=== PATIENT | male | born 1960 | race Caucasian/White ===

== ENCOUNTER 2016-11-06 13:33 | Observation (INO) | payer OTHER, MEDICAID ==
[~2016-11-06] VITALS: Ht 175.3 cm; Wt 120.0 kg
[~2016-11-06 13:33] MED LIST: HYDR-3535 PO
[2016-11-06 13:35] VITALS: BP 151/86; PULSE 75; RESP 22; TEMP 98.2; O2SAT 96
[2016-11-06 13:51] VITALS: O2SAT 97
--- NOTE | 2016-11-06 13:52 | PD ---
HPI Chief Complaint: Chest Pain Time Seen by Provider: 13:43 Travel History International Travel<30 days: No Contact w/Intl Traveler<30days: No Traveled to known affect area: No History of Present Illness HPI 56-year-old male with history of chronic back pain with several back surgeries, not on pain medications, here for evaluation of chest pain. Patient reports that the pain started at around 4:00 AM today and has been intermittent throughout the day today. He describes it as a heaviness/driving sensation in his left chest which comes and goes, no modifying factors, is moderate. No known history of cardiac disease. He smokes about a half a pack of cigarettes daily. Denies alcohol or illicit drug use. No history of DVT or PE. No dyspnea. No paresthesias or motor deficits. Currently he is complaining of pain and states it is an 8 out of 10. PFSH Past Medical History Arthritis: No Asthma: No Autoimmune Disease: No Anxiety: No Depression: Yes Heart Rhythm Problems: No Cancer: No Cardiac Catheterization: Yes Cardiovascular Problems: Yes High Cholesterol: Yes Chemotherapy: No Chest Pain: No Congestive Heart Failure: No COPD: No Cerebrovascular Accident: No Diabetes: Yes (BORDERLINE;NO MEDICATIONS) Patient Takes Glucophage: No Diminished Hearing: No Endocrine: Yes Gastrointestinal Disorders: No GERD: Yes Genitourinary: Yes Headaches: Yes Hepatitis: No Hiatal Hernia: Yes Hypertension: Yes Immune Disorder: No Kidney Stones: No Medical other: Yes (reflux stomach ulcers arthritis,back problems hx of mrsa to the scrota) Musculoskeletal: Yes (CHRONIC BACK PAIN>SEES PAIN MANAGMENT) Neurologic: Yes Psychiatric: Yes Reproductive: Yes Respiratory: Yes Immunizations Current: Yes Migraines: Yes Radiation Therapy: No Renal Failure: No Schizophrenia: Yes Seizures: No Sickle Cell Disease: No Sleep Apnea: Yes Thyroid Disease: No Ulcer: Yes PNEUMOCCOCAL Vaccine (Year): 2 Past Surgical History Abdominal Surgery: Yes (HERNIA X 2) AICD: No Arteriovenous Shunt: No Cardiac Surgery: No Ear Surgery: Yes (RIGHT EAR) Endocrine Surgery: No Eye Surgery: No Genitourinary Surgery: Yes (vasectomy repair of the lacerated scrotal area, LT ORCHIECTOMY) Gynecologic Surgery: No Insulin Pump: No Joint Replacement: No Neurologic Surgery: No Oral Surgery: No Thoracic Surgery: Yes (RIGHT COLLAR BONE) Other Surgery: Yes (RECTOCELLE) Social History Alcohol Use: No (DENIES) Tobacco Use: Yes (2 PPD) Substance Use: No Allergies-Medications (Allergen,Severity, Reaction): Coded Allergies: Aspirin (Verified Allergy, Intermediate, Stomach pain & bloating, 11/06/16) Nonsteroidal Anti-Inflammatory Agts (Verified Allergy, Mild, reflux, pain & bloating, 11/06/16) Reported Meds & Prescriptions Reported Meds & Active Scripts Active No Active Prescriptions or Reported Medications Review of Systems Except as stated in HPI: all other systems reviewed are Neg Physical Exam Narrative GENERAL: Well-developed, well-nourished, disheveled, comfortable, no acute distress. SKIN: Warm and dry. HEAD: Atraumatic. Normocephalic. EYES: Pupils equal and round. No scleral icterus. No injection or drainage. ENT: Mucous membranes pink and moist. NECK: Trachea midline. No JVD. CARDIOVASCULAR: Regular rate and rhythm. Distal pulses brisk and equal bilaterally. RESPIRATORY: No accessory muscle use. Clear to auscultation. Breath sounds equal bilaterally. GASTROINTESTINAL: Abdomen soft, non-tender, nondistended. MUSCULOSKELETAL: No obvious deformities. No clubbing. No cyanosis. No edema. NEUROLOGICAL: Awake and alert. No obvious cranial nerve deficits. Motor grossly within normal limits. Normal speech. PSYCHIATRIC: Appropriate mood and affect; insight and judgment normal. Data Data Last Documented VS Vital Signs Date Time Temp Pulse Resp B/P Pulse Ox O2 Delivery O2 Flow Rate FiO2 11/06/16 13:54 140/71 145/87 11/06/16 13:51 97 Room Air 11/06/16 13:35 98.2 75 22 Orders Basic Metabolic Panel (Bmp) (11/06/16 13:47) Ckmb (Isoenzyme) Profile (11/06/16 13:47) Complete Blood Count With Diff (11/06/16 13:47) Magnesium (Mg) (11/06/16 13:47) Prothrombin Time / Inr (Pt) (11/06/16 13:47) Act Partial Throm Time (Ptt) (11/06/16 13:47) Troponin I (11/06/16 13:47) Chest, Single Ap (11/06/16 13:47) Ecg Monitoring (11/06/16 13:47) Bilateral Bp Monitoring (11/06/16 13:47) Iv Access Insert/Monitor (11/06/16 13:47) Oximetry (11/06/16 13:47) Sodium Chloride 0.9% Flush (Ns Flush) (11/06/16 14:00) Nitroglycerin Sl (Nitrostat Sl) (11/06/16 14:00) CKMB (11/06/16 13:58) CKMB% (11/06/16 13:58) Labs Laboratory Tests Test 11/06/16 13:58 White Blood Count 8.2 TH/MM3 Red Blood Count 5.10 MIL/MM3 Hemoglobin 15.3 GM/DL Hematocrit 43.7 % Mean Corpuscular Volume 85.6 FL Mean Corpuscular Hemoglobin 30.0 PG Mean Corpuscular Hemoglobin 35.0 % Concent Red Cell Distribution Width 13.5 % Platelet Count 232 TH/MM3 Mean Platelet Volume 8.3 FL Neutrophils (%) (Auto) 57.7 % Lymphocytes (%) (Auto) 30.8 % Monocytes (%) (Auto) 9.2 % Eosinophils (%) (Auto) 1.5 % Basophils (%) (Auto) 0.8 % Neutrophils # (Auto) 4.7 TH/MM3 Lymphocytes # (Auto) 2.5 TH/MM3 Monocytes # (Auto) 0.7 TH/MM3 Eosinophils # (Auto) 0.1 TH/MM3 Basophils # (Auto) 0.1 TH/MM3 CBC Comment DIFF FINAL Differential Comment Prothrombin Time 10.5 SEC Prothromb Time International 1.0 RATIO Ratio Activated Partial 24.2 SEC Thromboplast Time Sodium Level 139 MEQ/L Potassium Level 4.0 MEQ/L Chloride Level 102 MEQ/L Carbon Dioxide Level 25.8 MEQ/L Anion Gap 11 MEQ/L Blood Urea Nitrogen 13 MG/DL Creatinine 0.96 MG/DL Estimat Glomerular Filtration 82 ML/MIN Rate Random Glucose 113 MG/DL Calcium Level 8.9 MG/DL Magnesium Level 2.1 MG/DL Total Creatine Kinase 231 U/L Creatine Kinase MB 4.1 NG/ML Troponin I LESS THAN 0.02 NG/ML MDM Medical Decision Making Medical Screen Exam Complete: Yes Emergency Medical Condition: Yes Medical Record Reviewed: Yes Interpretation(s) EKG: Sinus, rate 72, normal axis, normal intervals, nonspecific T-wave abnormalities, no ST segment abnormality Differential Diagnosis ACS, pneumothorax, pericarditis, PE, pneumonia, musculoskeletal chest wall pain. Narrative Course Vital signs show heart rate 75, blood pressure 151/86, pulse ox 97% on room air , oral temp of 98.2F. CBC is unremarkable. BMP is unremarkable. Chronic enzymes are negative. Chest x-ray shows no acute disease. Right clavicle surgically fixated. The patient was not given aspirin as he has an allergy that sounds like an anaphylaxis reaction. Patient was given sublingual nitroglycerin with some improvement in chest pain. He was made aware of all findings. He will be admitted to the chest pain center for further cardiac evaluation. He is amenable to this plan. Diagnosis Primary Impression: Chest pain Qualified Code: R07.9 - Chest pain, unspecified type Admitting Information Admitting Physician Requests: Observation Scripts No Active Prescriptions or Reported Meds Jayy Allen MD Nov 06, 2016 13:52
[2016-11-06 13:54] VITALS: BP_SYST 140; BP_SYST 145; BP_DIAS 71; BP_DIAS 87
[2016-11-06] MEDS: NITROGLYCERIN 0.4 MG SL 25 TABS/BTL SL SCH ×3 (13:56→14:10)
[2016-11-06] MEDS ORDERED: SODIUM CHLORIDE 0.9% FLUSH 5 ML FLUSH IVF PRN ×2 (14:00→16:00)
[2016-11-06 14:13] LABS: AUTOMATED NEUTROPHIL # 4.7 TH/MM3 (1.8-7.7); BASOPHIL # 0.1 TH/MM3 (0-0.2); BASOPHIL % 0.8 % (0.0-2.0); EOSINOPHIL # 0.1 TH/MM3 (0-0.4); EOSINOPHIL % 1.5 % (0.0-4.0); HEMATOCRIT 43.7 % (39.0-51.0); HEMO FLAGS DIFF FINAL; LYMPH % 30.8 % (9.0-44.0); LYMPHOCYTE # 2.5 TH/MM3 (1.0-4.8); MEAN CELL VOLUME 85.6 FL (80.0-100.0); MONO % 9.2 % (0.0-8.0); NEUT % 57.7 % (16.0-70.0); PLATELET COUNT 232 TH/MM3 (150-450); RED CELL DISTRIBUTION WIDTH 13.5 % (11.6-17.2); WHITE BLOOD COUNT 8.2 TH/MM3 (4.0-11.0)
--- NOTE | 2016-11-06 14:16 | RADRPT ---
EXAM DATE/TIME: 11/06/2016 14:05 [facility] COMPARISON: No previous studies available for comparison. INDICATIONS : Chest pain since 4am today, some numbness in left hand, short of breath MEDICAL HISTORY : Chronic obstructive pulmonary disease. SURGICAL HISTORY : clavicle, cervical fusion, hernia repair ENCOUNTER: Initial ACUITY: 1 day PAIN SCORE: 10/10 LOCATION: Bilateral chest FINDINGS: A single view of the chest demonstrates the lungs to be symmetrically aerated without evidence of mas s, infiltrate or effusion. The cardiomediastinal contours are unremarkable. Osseous structures are intact. Previous cervical fusion and right clavicular plate. CONCLUSION: Normal examination. Right clavicle is surgically fixated Kj Brand MD on November 06, 2016 at 14:14 Board Certified Radiologist. This report was verified electronically.
[2016-11-06 14:18] LABS: APTT (PATIENT) 24.2 SEC (24.3-30.1); PROTHROMBIN TIME - PATIENT 10.5 SEC (9.8-11.6)
[2016-11-06 14:33] LABS: ANION GAP 11 MEQ/L (5-15); BICARBONATE 25.8 MEQ/L (21.0-32.0); BLOOD UREA NITROGEN 13 MG/DL (7-18); CHLORIDE 102 MEQ/L (98-107); GLOMERULAR FILTRATION RATE 82 ML/MIN (>89); MAGNESIUM 2.1 MG/DL (1.5-2.5); SODIUM (NA) 139 MEQ/L (136-145)
[2016-11-06 14:36] LABS: CREATINE KINASE 231 U/L (39-308)
[2016-11-06 14:48] LABS: CKMB 4.1 NG/ML (0.5-3.6)
[2016-11-06] MEDS ORDERED: MORPHINE SULFATE 8 MG/ML INJ IV PUSH ONE (16:00)
[2016-11-06] MEDS ORDERED: RESP: ALBUTEROL 2.5 MG/IPRATROPIUM 0.5 MG NEB (PRN) INH (16:00)
[2016-11-06] MEDS ORDERED: ACETAMINOPHEN/HYDROcodone 325 MG/7.5 MG TAB PO PRN (16:00)
[2016-11-06] MEDS ORDERED: ONDANSETRON HCL 4 MG/2 ML VIAL IV PRN (16:00)
[2016-11-06] MEDS ORDERED: ACETAMINOPHEN 500 MG CPLT PO PRN (16:00)
[2016-11-06 17:01] LABS: CREATINE KINASE 201 U/L (39-308)
--- NOTE | 2016-11-06 17:07 | HHI.DCPOC ---
Discharge Care Plan Diagnosis: (1) Chest pain (2) Chronic back pain (3) Tobacco abuse Goals to Promote Your Health * To prevent worsening of your condition and complications * To maintain your health at the optimal level Directions to Meet Your Goals Take your medications as prescribed Follow your dietary instruction Follow activity as directed Keep your appointments as scheduled Take your immunizations and boosters as scheduled If your symptoms worsen call your PCP, if no PCP go to Urgent Care Center or Emergency Room Smoking is Dangerous to Your Health. Avoid second hand smoke Call the 24-hour hour crisis hotline for domestic abuse at Lewis Balbuena Nov 06, 2016 17:07
[2016-11-06 17:08] VITALS: BP 136/59
[2016-11-06 17:14] LABS: CKMB 2.8 NG/ML (0.5-3.6)
[2016-11-06] MEDS ORDERED: SODIUM CHLORIDE 0.9% FLUSH 5 ML FLUSH IVF SCH (21:00)
--- NOTE | 2016-11-07 08:41 | MH ---
cc: LOLIS DANG MD DATE OF ADMISSION: 11/06/2016 CHIEF COMPLAINT Chest pain HISTORY OF PRESENT ILLNESS This is a 56-year-old male that presents to the last size back pain and chest pain. His primary complaint was chest discomfort. He states that he woke up around 3 o'clock this morning secondary to back pain. While he is awake he developed a left center squeezing discomfort chest. Last about 5 seconds well as what was at 10. It did not affect his breathing make and nauseous or back and diaphoretic. He states it has recurred Maddie 20 times since then. He has time, lasting no more than seconds. Also complaining of chronic upper and lower back pain. He states he has not taken his pain meds at the month ago. He states he really was not working and 154 out. He is not following a back surgeon and started to further workup in his office requesting physical therapy. Next the patient has been evaluated at this facility for chest pain. He had abnormal stress test 04/15 followed by heart catheterization by Dr. Perry revealed widely patent coronary arteries. PAST MEDICAL HISTORY Chronic back pain and tobacco abuse. Denies hypertension, hyperlipidemia, diabetes and CAD. FAMILY HISTORY Denies family history of CAD. SOCIAL HISTORY He smoked about half packs daily for 30 years. He has occasional alcohol. Denies illicit drugs. . PAST SURGICAL HISTORY Vasectomy and left orchiectomy repair fracture right, right clavicle had hernia repair x2, heart catheterization revealing widely patent coronary arteries and 1010. ALLERGIES ASPIRIN, causing angioedema. CURRENT MEDICATIONS 93 mL. Taking pain medications by the pain meds Years ago mEq month ago. REVIEW OF SYSTEMS General: Denies fevers or chills. Denies recent illnesses. HEAD, EYES, EARS, NOSE, AND THROAT: Denies headache or sore throat difficulty swallowing. CARDIOVASCULAR SYSTEM: Describes the discomfort as mentioned above. Denies diaphoresis. Denies sensation of beating rapidly or irregular. No syncope. RESPIRATORY: Denies shortness of breath or inspirational chest discomfort. Denies coughing, wheezing or hemoptysis. GASTROINTESTINAL: Denies nausea, vomiting, diarrhea, blood in stool. MUSCULOSKELETAL: He complains of chronic back pain. Denies calf pain or swelling. NEUROVASCULAR: Denies headache or dizziness. ENDOCRINE: Denies polyuria, Polydipsia. HEMATOLOGIC: Denies easy bruising. SKIN: Denies rash or itching. PHYSICAL EXAMINATION VITAL SIGNS: In emergency room initially included a blood pressure of 151/86 or 75, respiration 20, pulse oximetry 96% room air. He is afebrile. IN GENERAL: The patient seen in the examination room in no apparent stress. He is pleasant. He speaks in clear and complete sentences. He is obese at 120 kg. His is at Bedside. HEAD, EYES, EARS, NOSE, AND THROAT: Head is atraumatic, normocephalic. NECK: Supple without lymphadenopathy. Trachea is midline. No JVD or carotid bruits. CARDIOVASCULAR SYSTEM: Regular rate and rhythm without murmur, gallop or rub. RESPIRATORY: Lungs are clear to auscultation bilaterally. No wheezing, rales or rhonchi. No use of accessory muscles. There is easily reproducible chest wall discomfort. He actually had another episode discomfort in his chest while there. I have palpated that area which made the discomfort even more intense. No use of accessory muscles. GASTROINTESTINAL: Abdomen is nontender, nondistended. Bowel sounds are normal. No guarding or rebound. No obvious pulsatile mass or bruit. No CVA tenderness. Strong femoral pulses bilaterally. MUSCULOSKELETAL: Patient moving upper lower extremity freely. No joint tenderness or edema. No calf tenderness or edema, no Homans' sign. Strong pulses in the upper and lower extremities. NEUROVASCULAR: The patient is alert, oriented. Cranial II XII grossly intact. No focal deficit and speech is clear. SKIN: No rashes. Turgor is normal. LABORATORY DATA CBC is unremarkable. Coagulation studies unremarkable. The basic metabolic panel essentially unremarkable. Glucose mild 113, GFR is mildly increased 82. First set cardiac enzymes normal. Single view chest x-ray read by radiologist as normal examination of right clavicle surgically fixated. EKG's initial electrocardiogram has sinus rhythm with nonspecific inferior T-wave changes. ASSESSMENT/PLAN: 1. Chest pain: His discomfort is atypical. He had a normal heart catheterization 2009. He has been seen by Dr. Dang and found this to be noncardiac. He will be given IV analgesia for his discomfort and if the second troponin were to be normal he will be discharged home with instructions to be followed by local physician as well as his back surgeon who is following him. 2. Chronic back pain: Continue follow-up with his specialist. 3. Tobacco abuse: The patient has been counseled for smoking cessation. 4. The patient stable at time. He is agreeable this plan. Dictated by ZOHRA Connell Lionel العلي/mia /4:12 PM /8:36 AM
--- NOTE | 2016-11-08 15:53 | EKG ---
Date Performed: 11/06/2016 Time Performed: 16:16:23 PTAGE: 56 years EKG: Sinus rhythm LOW QRS VOLTAGE IN PRECORDIAL LEADS NONSPECIFIC T-WAVE ABNORMALITY BORDERLINE ECG INTERPRETATION BAS ED ON A DEFAULT AGE OF 40 YEARS PREVIOUS TRACING : 11/06/2016 13.37 Since previous tracing, no significant change noted DOCTOR: Obinna Connell Interpretating Date/Time 11/08/2016 15:50:52
--- NOTE | 2016-11-08 15:54 | EKG ---
Date Performed: 11/06/2016 Time Performed: 13:37:46 PTAGE: 56 years EKG: Sinus rhythm NONSPECIFIC T-WAVE ABNORMALITY BORDERLINE ECG PREVIOUS TRACING : 10/09/2011 11.45 Since previous tracing, no significant change noted DOCTOR: Obinna Connell Interpretating Date/Time 11/08/2016 15:51:03
== END 2016-11-06 17:23 | disposition home or self-care (01) ==
LOC: NEPC 13:33 → NEDA 15:02
PROVIDERS: ADMIT Internal Medicine Interventional Cardiology; ATTEND Internal Medicine Interventional Cardiology
DX: R07.89 Other chest pain (principal); I10 Essential (primary) hypertension; Z87.11 Personal history of peptic ulcer disease; M54.5 Low back pain; G89.29 Other chronic pain; E11.9 Type 2 diabetes mellitus without complications; K21.9 Gastro-esophageal reflux disease without esophagitis; F20.9 Schizophrenia, unspecified; G47.30 Sleep apnea, unspecified; E78.00 Pure hypercholesterolemia, unspecified; F17.210 Nicotine dependence, cigarettes, uncomplicated; Z86.14 Personal history of Methicillin resistant Staphylococcus aureus infection; R94.31 Abnormal electrocardiogram [ECG] [EKG]
CPT/HCPCS: 71010; 80048; 82550; 82552; 83735; 84484; 85025; 85610; 85730; 93005; 99285; G0378; J2270

== ENCOUNTER 2017-11-22 07:51 | Observation (INO) | payer OTHER, MEDICAID ==
[2017-11-22] VITALS (7 sets, daily range): BP systolic 134–187; BP diastolic 71–91; PULSE 62–74; RESP 16–20; TEMP 97.7–97.9; O2SAT 96–99
[2017-11-22] MEDS ORDERED: SODIUM CHLOR 0.9% 1000 ML INJ 1,000 ML IV SCH (08:07)
--- NOTE | 2017-11-22 08:14 | PD ---
HPI Chief Complaint: Flank/Kidney Pain Time Seen by Provider: 08:06 Travel History International Travel<30 days: No Contact w/Intl Traveler<30days: No Traveled to known affect area: No History of Present Illness HPI 57-year-old male brought in by ambulance from home for evaluation of severe right flank pain radiating to his right lower abdomen that started about an hour prior to arrival while having a bowel movement. Pain is sharp, severe, associated with nausea. Patient noted some blood in his urine a few days ago. History of inguinal hernia repair. PFSH Past Medical History Arthritis: No Asthma: No Autoimmune Disease: No Anxiety: No Depression: Yes Heart Rhythm Problems: No Cancer: No Cardiac Catheterization: Yes Cardiovascular Problems: Yes High Cholesterol: Yes Chemotherapy: No Chest Pain: No Congestive Heart Failure: No COPD: No Cerebrovascular Accident: No Diabetes: Yes (BORDERLINE;NO MEDICATIONS) Diminished Hearing: No Endocrine: Yes Gastrointestinal Disorders: No GERD: Yes Genitourinary: Yes Headaches: Yes Hepatitis: No Hiatal Hernia: Yes Hypertension: Yes Immune Disorder: No Kidney Stones: No Musculoskeletal: Yes (CHRONIC BACK PAIN>SEES PAIN MANAGMENT) Neurologic: Yes Psychiatric: Yes Reproductive: Yes Respiratory: Yes Immunizations Current: Yes Migraines: Yes Radiation Therapy: No Renal Failure: No Schizophrenia: Yes Seizures: No Sickle Cell Disease: No Sleep Apnea: Yes Thyroid Disease: No Ulcer: Yes PNEUMOCCOCAL Vaccine (Year): 2 Past Surgical History Abdominal Surgery: Yes (HERNIA X 2) AICD: No Arteriovenous Shunt: No Cardiac Surgery: No Ear Surgery: Yes (RIGHT EAR) Endocrine Surgery: No Eye Surgery: No Genitourinary Surgery: Yes (vasectomy repair of the lacerated scrotal area, LT ORCHIECTOMY) Gynecologic Surgery: No Insulin Pump: No Joint Replacement: No Neurologic Surgery: No Oral Surgery: No Thoracic Surgery: Yes (RIGHT COLLAR BONE) Other Surgery: Yes (RECTOCELLE) Social History Alcohol Use: No (DENIES) Tobacco Use: Yes (1/2 PPD) Substance Use: No Allergies-Medications (Allergen,Severity, Reaction): Coded Allergies: aspirin (Unverified Allergy, Intermediate, Stomach pain & bloating, ) diclofenac (Unverified Allergy, Mild, reflux, pain & bloating, 11/22/17) etodolac (Unverified Allergy, Mild, reflux, pain & bloating, 11/22/17) flurbiprofen (Unverified Allergy, Mild, reflux, pain & bloating, 11/22/17) ibuprofen (Unverified Allergy, Mild, reflux, pain & bloating, 11/22/17) indomethacin (Unverified Allergy, Mild, reflux, pain & bloating, 11/22/17) ketoprofen (Unverified Allergy, Mild, reflux, pain & bloating, 11/22/17) ketorolac (Unverified Allergy, Mild, reflux, pain & bloating, 11/22/17) naproxen (Unverified Allergy, Mild, reflux, pain & bloating, 11/22/17) oxaprozin (Unverified Allergy, Mild, reflux, pain & bloating, 11/22/17) Reported Meds & Prescriptions Reported Meds & Active Scripts Active No Active Prescriptions or Reported Medications Review of Systems Except as stated in HPI: all other systems reviewed are Neg Physical Exam Narrative GENERAL: Well-developed, well-nourished, overweight, moderate distress secondary to pain. SKIN: Focused skin assessment warm/dry. No rash. HEAD: Atraumatic. Normocephalic. EYES: Pupils equal and round. No scleral icterus. No injection or drainage. ENT: No nasal bleeding or discharge. Mucous membranes pink and moist. NECK: Trachea midline. No JVD. CARDIOVASCULAR: Regular rate and rhythm. RESPIRATORY: No accessory muscle use. Clear to auscultation. Breath sounds equal bilaterally. GASTROINTESTINAL: Abdomen soft, non-tender, nondistended. MUSCULOSKELETAL: No obvious deformities. No clubbing. No cyanosis. No edema. Mild right CVA tenderness. No left CVA tenderness. NEUROLOGICAL: Awake and alert. No obvious cranial nerve deficits. Motor grossly within normal limits. Normal speech. PSYCHIATRIC: Appropriate mood and affect; insight and judgment normal. Data Data Last Documented VS Vital Signs Date Time Temp Pulse Resp B/P (MAP) Pulse Ox O2 Delivery O2 Flow Rate FiO2 11/22/17 11:35 74 16 153/80 (104) 99 Room Air Orders Orders Complete Blood Count With Diff (11/22/17 08:07) Comprehensive Metabolic Panel (11/22/17 08:07) Prothrombin Time / Inr (Pt) (11/22/17 08:07) Act Partial Throm Time (Ptt) (11/22/17 08:07) Urinalysis - C+S If Indicated (11/22/17 08:07) Ct Abd/Pel W/O Iv Contrast (11/22/17 08:07) Iv Access Insert/Monitor (11/22/17 08:07) Ecg Monitoring (11/22/17 08:07) Oximetry (11/22/17 08:07) Sodium Chlor 0.9% 1000 Ml Inj (Ns 1000 M (11/22/17 08:07) Sodium Chloride 0.9% Flush (Ns Flush) (11/22/17 08:15) Hydromorphone Pf Inj (Dilaudid Pf Inj) (11/22/17 08:15) Ondansetron Inj (Zofran Inj) (11/22/17 08:15) Hydromorphone Pf Inj (Dilaudid Pf Inj) (11/22/17 09:00) Tamsulosin (Flomax) (11/22/17 10:00) Ketorolac Inj (Toradol Inj) (11/22/17 10:00) Admit Order (Ed Use Only) (11/22/17 11:42) Labs Laboratory Tests Test 11/22/17 08:15 White Blood Count 7.6 TH/MM3 Red Blood Count 5.32 MIL/MM3 Hemoglobin 15.7 GM/DL Hematocrit 45.8 % Mean Corpuscular Volume 86.1 FL Mean Corpuscular Hemoglobin 29.5 PG Mean Corpuscular Hemoglobin Concent 34.2 % Red Cell Distribution Width 13.5 % Platelet Count 266 TH/MM3 Mean Platelet Volume 7.9 FL Neutrophils (%) (Auto) 54.2 % Lymphocytes (%) (Auto) 33.8 % Monocytes (%) (Auto) 9.9 % Eosinophils (%) (Auto) 1.4 % Basophils (%) (Auto) 0.7 % Neutrophils # (Auto) 4.1 TH/MM3 Lymphocytes # (Auto) 2.6 TH/MM3 Monocytes # (Auto) 0.7 TH/MM3 Eosinophils # (Auto) 0.1 TH/MM3 Basophils # (Auto) 0.1 TH/MM3 CBC Comment DIFF FINAL Differential Comment Prothrombin Time 10.2 SEC Prothromb Time International Ratio 1.0 RATIO Activated Partial Thromboplast Time 21.3 SEC Urine Color YELLOW Urine Turbidity CLEAR Urine pH 5.0 Urine Specific Russell 1.021 Urine Protein NEG mg/dL Urine Glucose (UA) NEG mg/dL Urine Ketones NEG mg/dL Urine Occult Blood LARGE Urine Nitrite NEG Urine Bilirubin NEG Urine Urobilinogen LESS THAN 2.0 MG/DL Urine Leukocyte Esterase NEG Urine RBC 2 /hpf Urine WBC 1 /hpf Urine Mucus FEW /lpf Microscopic Urinalysis Comment CULT NOT INDICATED Blood Urea Nitrogen 14 MG/DL Creatinine 0.94 MG/DL Random Glucose 150 MG/DL Total Protein 7.5 GM/DL Albumin 3.9 GM/DL Calcium Level 9.2 MG/DL Alkaline Phosphatase 72 U/L Aspartate Amino Transf (AST/SGOT) 42 U/L Alanine Aminotransferase (ALT/SGPT) 56 U/L Total Bilirubin 0.2 MG/DL Sodium Level 139 MEQ/L Potassium Level 4.2 MEQ/L Chloride Level 107 MEQ/L Carbon Dioxide Level 24.0 MEQ/L Anion Gap 8 MEQ/L Estimat Glomerular Filtration Rate 83 ML/MIN [facility] Medical Decision Making Medical Screen Exam Complete: Yes Emergency Medical Condition: Yes Differential Diagnosis Nephrolithiasis, ureterolithiasis, UTI, pyelonephritis, colitis, diverticulitis , perforated viscus, AAA, dissection Narrative Course Vital signs reviewed. CBC is unremarkable. CMP is unremarkable. UA: Large occult blood, not suggestive of UTI. CT abdomen pelvis: CONCLUSION: Tiny, 1 mm stone distal right ureter without hydronephrosis or perinephric stranding. Tiny nonobstructing stone left kidney. Patient was given 2 doses of 1 mg of IV Dilaudid without improvement in pain. His medication allergy list states that he is allergic to Toradol. When asked about this, the patient tells me he does not know why it says this. He was given 30 mg of IV Toradol and his pain improved. On reassessment 30 minutes later he states his pain is back and is getting worse. He was given a dose of Flomax. Because of continued pain, he will be admitted for further treatment and evaluation. Diagnosis Primary Impression: Ureterolithiasis Additional Impression: Intractable pain Admitting Information Admitting Physician Requests: Observation Scripts No Active Prescriptions or Reported Meds Jayy Allen MD Nov 22, 2017 08:14
[2017-11-22] MEDS ORDERED: HYDROmorphone HCL PF 2 MG/ML VIAL IV PUSH ONE ×2 (08:15→09:00)
[2017-11-22] MEDS ORDERED: SODIUM CHLORIDE 0.9% FLUSH 10 ML FLUSH IV FLUSH PRN ×2 (08:15→13:15)
[2017-11-22] MEDS ORDERED: ONDANSETRON HCL 4 MG/2 ML VIAL IV PUSH ONE (08:15)
[2017-11-22 08:48] LABS: AUTOMATED NEUTROPHIL # 4.1 TH/MM3 (1.8-7.7); BASOPHIL # 0.1 TH/MM3 (0-0.2); BASOPHIL % 0.7 % (0.0-2.0); EOSINOPHIL # 0.1 TH/MM3 (0-0.4); EOSINOPHIL % 1.4 % (0.0-4.0); HEMATOCRIT 45.8 % (39.0-51.0); HEMOGLOBIN 15.7 GM/DL (13.0-17.0); LYMPH % 33.8 % (9.0-44.0); LYMPHOCYTE # 2.6 TH/MM3 (1.0-4.8); MEAN CELL VOLUME 86.1 FL (80.0-100.0); MEAN CORPUSCULAR HEMOGLOBIN 29.5 PG (27.0-34.0); MEAN CORPUSCULAR HGB CONC 34.2 % (32.0-36.0); MEAN PLATELET VOLUME 7.9 FL (7.0-11.0); MONO % 9.9 % (0.0-8.0); MONOCYTE # 0.7 TH/MM3 (0-0.9); NEUT % 54.2 % (16.0-70.0); PLATELET COUNT 266 TH/MM3 (150-450); RED BLOOD COUNT 5.32 MIL/MM3 (4.50-5.90); RED CELL DISTRIBUTION WIDTH 13.5 % (11.6-17.2); WHITE BLOOD COUNT 7.6 TH/MM3 (4.0-11.0)
[2017-11-22 08:58] LABS: BILIRUBIN, URINE NEG (NEG); BLOOD, URINE LARGE (NEG); GLUCOSE,URINE NEG (NEG); KETONE, URINE NEG (NEG); MUCUS URINE FEW /lpf (OCC); NITRITE,URINE NEG (NEG); PROTHROMBIN TIME - PATIENT 10.2 SEC (9.8-11.6); URINE COLOR YELLOW (YELLW/STRAW); URINE LEUKOCYTE ESTERASE NEG (NEG)
[2017-11-22 09:14] LABS: ALBUMIN 3.9 GM/DL (3.4-5.0); AST (GOT) 42 U/L (15-37); BLOOD UREA NITROGEN 14 MG/DL (7-18); CALCIUM 9.2 MG/DL (8.5-10.1); CHLORIDE 107 MEQ/L (98-107); CREATININE 0.94 MG/DL (0.60-1.30); GLOMERULAR FILTRATION RATE 83 ML/MIN (>89); GLUCOSE,RANDOM 150 MG/DL (74-106); SODIUM (NA) 139 MEQ/L (136-145)
[2017-11-22 09:15] LABS: ALT (GPT) 56 U/L (12-78)
[2017-11-22 09:18] LABS: ALKALINE PHOSPHATASE 72 U/L (45-117); TOTAL BILIRUBIN ADULT 0.2 MG/DL (0.2-1.0); TOTAL PROTEIN 7.5 GM/DL (6.4-8.2)
--- NOTE | 2017-11-22 09:40 | RADRPT ---
EXAM DATE/TIME: 11/22/2017 09:04 [facility] COMPARISON: CT ABDOMEN & PELVIS W/O CONTRAST, January 15, 2016, 16:30. INDICATIONS : Right sided pain for a few hours. ORAL CONTRAST: No oral contrast ingested. RADIATION DOSE: 12.77 CTDIvol (mGy) MEDICAL HISTORY : Cardiovascular disease. Hypertension. Hernia, hiatal. SURGICAL HISTORY : Scrotal surgery ENCOUNTER: Initial ACUITY: 1 day PAIN SCALE: 9/10 LOCATION: Right ribs TECHNIQUE: Volumetric scanning of the abdomen and pelvis was performed. Using automated exposure control and ad justment of the mA and/or kV according to patient size, radiation dose was kept as low as reasonably achievable to obtain optimal diagnostic quality images. DICOM format image data is available electro nically for review and comparison. FINDINGS: LOWER LUNGS: The visualized lower lungs are clear. LIVER: Homogeneous density without lesion. There is no dilation of the biliary tree. No calcified gallston es. SPLEEN: Normal size without lesion. PANCREAS: Within normal limits. KIDNEYS: Tiny stone distal right ureter just above the UVJ.. Tiny nonobstructing stone left kidney. No perin ephric stranding. ADRENAL GLANDS: Within normal limits. VASCULAR: Minimal vascular calcifications. BOWEL/MESENTERY: The stomach, small bowel, and colon demonstrate no acute abnormality. There is no free intraperitone al air or fluid. ABDOMINAL WALL: Within normal limits. RETROPERITONEUM: There is no lymphadenopathy. BLADDER: No wall thickening or mass. REPRODUCTIVE: Within normal limits. INGUINAL: There is no lymphadenopathy or hernia. MUSCULOSKELETAL: Fixation L4-5. CONCLUSION: Tiny, 1 mm stone distal right ureter without hydronephrosis or perinephric stranding. Tiny nonobstructing stone left kidney. Robin Humphrey MD FACR on November 22, 2017 at 9:35 Board Certified Radiologist. This report was verified electronically.
[2017-11-22] MEDS ORDERED: TAMSULOSIN HCL 0.4 MG CAP PO ONE (10:00)
[2017-11-22] MEDS ORDERED: KETOROLAC TROMETHAMINE 30 MG/ML (IVP) VIAL IV PUSH ONE (10:00)
[2017-11-22] MEDS ORDERED: LACTULOSE SYRUP 20 GM/30 ML CUP PO PRN (13:15)
[2017-11-22] MEDS ORDERED: ONDANSETRON HCL 4 MG/2 ML VIAL IVP PRN (13:15)
[2017-11-22] MEDS ORDERED: BISACODYL 10 MG SUPP RECTAL PRN (13:15)
[2017-11-22] MEDS ORDERED: SENNOSIDES 8.6 MG TAB PO PRN (13:15)
[2017-11-22] MEDS ORDERED: MAGNESIUM HYDROXIDE SUSP 30 ML CUP PO PRN (13:15)
[2017-11-22] MEDS ORDERED: NALOXONE HCL 0.4 MG/ML AMP IV PUSH PRN (13:15)
--- NOTE | 2017-11-22 13:42 | HHI.HP ---
[facility] Service [facility] Primary Care Physician Unknown Admission Diagnosis ureterolithiasis, intractable flank pain Diagnoses: (1) Ureterolithiasis Travel History International Travel<30 Days: No Contact w/Intl Traveler <30 Da: No Traveled to Known Affected Are: No History of Present Illness 57-year-old male with a history of chronic pain presents to the ER today following onset of right flank pain that is colicky in nature and associated with hematuria beginning this morning at approximately 8 AM. Onset was sudden and while urinating. She denies any significant nausea or vomiting, or chest pain. He states that he feels dehydrated and cannot produce much urine at this time. Other significant history includes a history of low back pain and previous abdominal surgeries for which she has visited pain management for p.o. narcotics. His pain has been difficult to control in the ER despite the stone being only [address] Review of Systems Constitutional: DENIES: Fever, Weight gain, Weight loss, Chills Eyes: DENIES: Blurred vision, Diplopia, Eye pain, Vision loss Ears, nose, mouth, throat: DENIES: Vertigo, Throat pain, Hoarseness Respiratory: DENIES: Cough, Wheezing, Hemoptysis, Sputum production Cardiovascular: DENIES: Palpitations, Syncope, Dyspnea on Exertion, Lower Extremity Edema Gastrointestinal: DENIES: Abdominal pain, Constipation, Diarrhea, Nausea, Vomiting Genitourinary: COMPLAINS OF: Hematuria Musculoskeletal: COMPLAINS OF: Back pain, DENIES: Joint pain, Muscle aches Neurologic: DENIES: Abnormal gait, Headache, Localized weakness, Seizures Psychiatric: DENIES: Anxiety, Confusion, Mood changes, Depression Past Family Social History Past Medical History Coronary artery disease Past Surgical History Left orchiectomy Right clavicle surgery Exploratory laparotomy Lumbar fusion C6-7 fusion Allergies: Coded Allergies: aspirin (Unverified Allergy, Intermediate, Stomach pain & bloating, ) diclofenac (Unverified Allergy, Mild, reflux, pain & bloating, 11/22/17) etodolac (Unverified Allergy, Mild, reflux, pain & bloating, 11/22/17) flurbiprofen (Unverified Allergy, Mild, reflux, pain & bloating, 11/22/17) ibuprofen (Unverified Allergy, Mild, reflux, pain & bloating, 11/22/17) indomethacin (Unverified Allergy, Mild, reflux, pain & bloating, 11/22/17) ketoprofen (Unverified Allergy, Mild, reflux, pain & bloating, 11/22/17) ketorolac (Unverified Allergy, Mild, reflux, pain & bloating, 11/22/17) naproxen (Unverified Allergy, Mild, reflux, pain & bloating, 11/22/17) oxaprozin (Unverified Allergy, Mild, reflux, pain & bloating, 11/22/17) Family History Heart attack Social History Smokes one half pack per day 20 years Occasional alcohol use Physical Exam Vital Signs Vital Signs Date Time Temp Pulse Resp B/P (MAP) Pulse Ox O2 Delivery O2 Flow Rate FiO2 11/22/17 11:35 74 16 153/80 (104) 99 Room Air 11/22/17 08:25 62 16 187/81 (116) 11/22/17 08:24 67 16 187/81 (116) 98 Room Air Physical Exam GENERAL: Obese, well-developed patient, in no apparent distress. SKIN: No rashes, ecchymoses or lesions. Cool and dry. HEAD: Atraumatic. Normocephalic. No temporal or scalp tenderness. EYES: Pupils equal round and reactive. Extraocular motions intact. No scleral icterus. No injection or drainage. ENT: Nose without bleeding, purulent drainage or septal hematoma. Throat without erythema, tonsillar hypertrophy or exudate. Uvula midline. Airway patent. NECK: Trachea midline. No JVD or lymphadenopathy. Supple, nontender, no meningeal signs. CARDIOVASCULAR: Regular rate and rhythm without murmurs, gallops, or rubs. RESPIRATORY: Clear to auscultation. Breath sounds equal bilaterally. No wheezes , rales, or rhonchi. GENITOURINARY: Right-sided CVA tenderness, right flank tenderness GASTROINTESTINAL: Abdomen soft, non-tender, nondistended. No hepato-splenomegaly , or palpable masses. No guarding. MUSCULOSKELETAL: Extremities without clubbing, cyanosis, or edema. No joint tenderness, effusion, or edema noted. No calf tenderness. Negative Homans sign bilaterally. NEUROLOGICAL: Awake and alert. Cranial nerves II through XII intact. Motor and sensory grossly within normal limits. Five out of 5 muscle strength in all muscle groups. Normal speech. Laboratory Laboratory Tests Test 11/22/17 08:15 White Blood Count 7.6 Red Blood Count 5.32 Hemoglobin 15.7 Hematocrit 45.8 Mean Corpuscular Volume 86.1 Mean Corpuscular Hemoglobin 29.5 Mean Corpuscular Hemoglobin Concent 34.2 Red Cell Distribution Width 13.5 Platelet Count 266 Mean Platelet Volume 7.9 Neutrophils (%) (Auto) 54.2 Lymphocytes (%) (Auto) 33.8 Monocytes (%) (Auto) 9.9 Eosinophils (%) (Auto) 1.4 Basophils (%) (Auto) 0.7 Neutrophils # (Auto) 4.1 Lymphocytes # (Auto) 2.6 Monocytes # (Auto) 0.7 Eosinophils # (Auto) 0.1 Basophils # (Auto) 0.1 CBC Comment DIFF FINAL Differential Comment Prothrombin Time 10.2 Prothromb Time International Ratio 1.0 Activated Partial Thromboplast Time 21.3 Urine Color YELLOW Urine Turbidity CLEAR Urine pH 5.0 Urine Specific [place] 1.021 Urine Protein NEG Urine Glucose (UA) NEG Urine Ketones NEG Urine Occult Blood LARGE Urine Nitrite NEG Urine Bilirubin NEG Urine Urobilinogen LESS THAN 2.0 Urine Leukocyte Esterase NEG Urine RBC 2 Urine WBC 1 Urine Mucus FEW Microscopic Urinalysis Comment CULT NOT INDICATED Blood Urea Nitrogen 14 Creatinine 0.94 Random Glucose 150 Total Protein 7.5 Albumin 3.9 Calcium Level 9.2 Alkaline Phosphatase 72 Aspartate Amino Transf (AST/SGOT) 42 Alanine Aminotransferase (ALT/SGPT) 56 Total Bilirubin 0.2 Sodium Level 139 Potassium Level 4.2 Chloride Level 107 Carbon Dioxide Level 24.0 Anion Gap 8 Estimat Glomerular Filtration Rate 83 Result Diagram: 11/22/1781411/22/17814 Caprini VTE Risk Assessment Caprini VTE Risk Assessment: Mod/High Risk (score >= 2) Caprini Risk Assessment Model Point Value = 1 Point Value = 2 Point Value = 3 Point Value = 5 Age 41-60 Minor surgery BMI > 25 kg/m2 Swollen legs Varicose veins or History of unexplained or recurrent spontaneous Oral contraceptives or hormone replacement Sepsis (< 1 month) Serious lung disease, including pneumonia (< 1 month) Abnormal pulmonary function Acute myocardial infarction Congestive heart failure (< 1 month) History of inflammatory bowel disease Medical patient at bed rest Age 61-74 Arthroscopic surgery Major open surgery (> 45 min) Laparoscopic surgery (> 45 min) Malignancy Confined to bed (> 72 hours) Immobilizing plaster cast Central venous access Age >= 75 History of VTE Family history of VTE Factor V Leiden Prothrombin [id number] Lupus anticoagulant Anticardiolipin antibodies Elevated serum homocysteine Heparin-induced thrombocytopenia Other congenital or acquired thrombophilia Stroke (< 1 month) Elective arthroplasty Hip, pelvis, or leg fracture Acute spinal cord injury (< 1 month) Prophylaxis Regimen Total Risk Factor Score Risk Level Prophylaxis Regimen 0-1 Low Early ambulation 2 Moderate Order ONE of the following: *Sequential Compression Device (SCD) *Heparin 5000 units SQ BID 3-4 Higher Order ONE of the following medications: *Heparin 5000 units SQ TID *Enoxaparin/Lovenox 40 mg SQ daily (WT < 150 kg, CrCl > 30 mL/min) *Enoxaparin/Lovenox 30 mg SQ daily (WT < 150 kg, CrCl > 10-29 mL/min) *Enoxaparin/Lovenox 30 mg SQ BID (WT < 150 kg, CrCl > 30 mL/min) AND/OR *Sequential Compression Device (SCD) 5 or more Highest Order ONE of the following medications: *Heparin 5000 units SQ TID (Preferred with Epidurals) *Enoxaparin/Lovenox 40 mg SQ daily (WT < 150 kg, CrCl > 30 mL/min) *Enoxaparin/Lovenox 30 mg SQ daily (WT < 150 kg, CrCl > 10-29 mL/min) *Enoxaparin/Lovenox 30 mg SQ BID (WT < 150 kg, CrCl > 30 mL/min) AND *Sequential Compression Device (SCD) Assessment and Plan Problem List: (1) Ureterolithiasis ICD Code: N20.1 - Calculus of ureter Status: Acute Assessment and Plan Nephrolithiasis 1 mm stone present in right ureter on CT abdomen Hematuria without signs of infection, but pain is intractable in the ER Continue with IV and p.o. pain management Add IV fluid hydration to encourage urine output Agree with Flomax given by ER If there is any difficulty passing a 1 mm stone overnight consider consulting nephrology for further recommendations Chronic Pain Patient is likely tolerant to average doses of narcotics Combination approach with both p.o. and IV options DVT prophylaxis SCDs Discharge planning Patient may be discharged when he is more comfortable and/or when he passes his stone Waqar Saavedra MD Nov 22, 2017 13:42
[2017-11-22] MEDS ORDERED: TUMS500C CHEW (13:56)
[2017-11-22] MEDS: KETOROLAC TROMETHAMINE 30 MG/ML (IVP) VIAL IV PUSH PRN ×2 (15:06→20:26)
[2017-11-22] MEDS: SODIUM CHLOR 0.9% 1000 ML INJ 1,000 ML IV SCH ×2 (15:08→23:41)
[2017-11-22] MEDS: SODIUM CHLORIDE 0.9% FLUSH 10 ML FLUSH IV FLUSH SCH (20:31)
[2017-11-22] MEDS: MORPHINE SULFATE 4 MG/ML INJ IV PUSH PRN (23:40)
[2017-11-23] MEDS: KETOROLAC TROMETHAMINE 30 MG/ML (IVP) VIAL IV PUSH PRN (02:38)
[2017-11-23 03:24] VITALS: BP 186/90; PULSE 68; RESP 20; TEMP 97.7; O2SAT 97
[2017-11-23] MEDS: MORPHINE SULFATE 4 MG/ML INJ IV PUSH PRN (07:48)
--- NOTE | 2017-11-23 08:31 | HHI.PR ---
Subjective Remarks Patient seen this morning around 7:30 AM. Reports that severe right sided abdominal pain continues. Denies any chest pain or shortness of breath. Denies any nausea or vomiting. Objective Vital Signs Date Time Temp Pulse Resp B/P (MAP) Pulse Ox O2 Delivery O2 Flow Rate FiO2 11/23/17 03:24 97.7 68 20 186/90 (122) 97 11/22/17 23:16 97.7 73 20 138/71 (93) 97 11/22/17 20:41 97.8 73 20 134/76 (95) 96 11/22/17 13:52 Room Air 11/22/17 13:52 97.9 69 18 174/91 (118) 11/22/17 13:33 153/80 (104) 11/22/17 11:35 74 16 153/80 (104) 99 Room Air I/O 11/22/17 11/22/17 11/22/17 11/23/17 11/23/17 11/23/17 07:00 15:00 23:00 07:00 15:00 23:00 Intake Total 1000 ml Output Total 300 ml 600 ml 800 ml Balance 1000 ml -300 ml -600 ml -800 ml Intake IV Total 1000 ml Output Urine Total 300 ml 600 ml 800 ml Result Diagram: 11/22/17 0815 11/22/17 0815 Objective Remarks GENERAL: sitting up in bed, appears uncomfortable. SKIN: Warm and dry. HEAD: Normocephalic. EYES: No scleral icterus. No injection or drainage. NECK: Supple, trachea midline. No JVD. CARDIOVASCULAR: Regular rate and rhythm without murmurs, gallops, or rubs. RESPIRATORY: Breath sounds equal bilaterally. No accessory muscle use. GASTROINTESTINAL: Abdomen soft, non-tender, nondistended. MUSCULOSKELETAL: No cyanosis, or edema. BACK: Nontender without obvious deformity. No CVA tenderness. A/P Assessment and Plan //Nephrolithiasis 1 mm stone present in right ureter on CT abdomen Hematuria without signs of infection, but pain is intractable in the ER Continue with IV and p.o. pain management Add IV fluid hydration to encourage urine output Agree with Flomax given by ER If there is any difficulty passing a 1 mm stone overnight consider consulting nephrology for further recommendations =no improvement. consult urology. cont narcotics for pain control. //Chronic Pain Patient is likely tolerant to average doses of narcotics Combination approach with both p.o. and IV options //DVT prophylaxis SCDs Discharge Planning Continue in observation for pain control. Margarito Wisdom MD Nov 23, 2017 08:31
[2017-11-23] MEDS: SODIUM CHLORIDE 0.9% FLUSH 10 ML FLUSH IV FLUSH SCH (08:45)
[2017-11-23] MEDS: SODIUM CHLOR 0.9% 1000 ML INJ 1,000 ML IV SCH (08:45)
[2017-11-23] MEDS ORDERED: PHENAZOPYRIDINE HCL 200 MG TAB PO ONE (08:45)
[2017-11-23 09:29] VITALS: BP 158/90; PULSE 73; RESP 20; TEMP 98.2; O2SAT 98
[2017-11-23] MEDS ORDERED: OMEP20TA93 PO (12:45)
[2017-11-23] MEDS ORDERED: PHEN-537 PO (12:45)
[2017-11-23] MEDS ORDERED: OXYC-392 PO (12:45)
[2017-11-23 12:54] VITALS: BP 147/85; PULSE 70; RESP 20; TEMP 98.6; O2SAT 98
--- NOTE | 2017-11-23 12:58 | PD.CONS ---
HPI Service Urology Consult Requested By Dr. Wisdom Reason for Consult Right ureteral calculus Primary Care Physician Unknown Diagnosis: (1) Ureterolithiasis ICD Code: N20.1 - Calculus of ureter History of Present Illness 57-year-old gentleman with history of a left orchiectomy who presented to the emergency room with acute onset right flank pain. Workup included a CT scan stone protocol that demonstrated a right distal ureteral calculus measuring approximately 1 mm with mild right hydronephrosis. Also noted was a punctate nonobstructing left renal calculus. At the time of consultation the patient's pain appeared well controlled. He denied dysuria, gross hematuria or fevers. I reviewed the actual CT scan images and concur with the radiologist's impression. Review of Systems Constitutional: DENIES: Fever, Night Sweats Cardiovascular: DENIES: Chest pain Gastrointestinal: COMPLAINS OF: Abdominal pain (Right lower quadrant) Genitourinary: DENIES: Hematuria, Dysuria Musculoskeletal: COMPLAINS OF: Back pain (Right flank now resolved) Except as stated in HPI: all other systems reviewed are Neg Past Family Social History Past Medical History Coronary artery disease Chronic back pain Past Surgical History Status post lumbar fusion procedure Status post cervical fusion procedure Status post left orchiectomy Reported Medications Refer to EMR Allergies: Coded Allergies: aspirin (Verified Allergy, Mild, 11/22/17) Active Ordered Medications Refer to EMR Family History Family history positive for CO Social History Smoker of one half pack per day 20 years Occasional alcohol use Denies illicit drug use Physical Exam Vital Signs Date Time Temp Pulse Resp B/P (MAP) Pulse Ox O2 Delivery O2 Flow Rate FiO2 11/23/17 12:54 98.6 70 20 147/85 (105) 98 11/23/17 09:29 98.2 73 20 158/90 (112) 98 11/23/17 03:24 97.7 68 20 186/90 (122) 97 11/22/17 23:16 97.7 73 20 138/71 (93) 97 11/22/17 20:41 97.8 73 20 134/76 (95) 96 11/22/17 13:52 Room Air 11/22/17 13:52 97.9 69 18 174/91 (118) 11/22/17 13:33 153/80 (104) Physical Exam GENERAL: This is a well-nourished, well-developed patient, in no apparent distress. SKIN: No rashes, ecchymoses or lesions. Cool and dry. HEAD: Atraumatic. Normocephalic. No temporal or scalp tenderness. EYES: Pupils equal round and reactive. Extraocular motions intact. No scleral icterus. No injection or drainage. ENT: Nose without bleeding, purulent drainage or septal hematoma. Throat without erythema, tonsillar hypertrophy or exudate. Uvula midline. Airway patent. NECK: Trachea midline. No JVD or lymphadenopathy. Supple, nontender, no meningeal signs. CARDIOVASCULAR: Regular rate and rhythm without murmurs, gallops, or rubs. RESPIRATORY: Clear to auscultation. Breath sounds equal bilaterally. No wheezes , rales, or rhonchi. GASTROINTESTINAL: Abdomen soft, non-tender, nondistended. No hepato-splenomegaly , or palpable masses. No guarding. GENITOURINARY: No CVA tenderness, bladder not distended MUSCULOSKELETAL: Extremities without clubbing, cyanosis, or edema. No joint tenderness, effusion, or edema noted. No calf tenderness. Negative Homans sign bilaterally. NEUROLOGICAL: Awake and alert. Cranial nerves II through XII intact. Motor and sensory grossly within normal limits. Five out of 5 muscle strength in all muscle groups. Normal speech. Lab results reviewed: Yes Laboratory Tests Test 11/23/17 07:25 Urine Opiates Screen NEG Urine Barbiturates Screen NEG Urine Amphetamines Screen NEG Urine Benzodiazepines Screen NEG Urine Cocaine Screen NEG Urine Cannabinoids Screen NEG Result Diagram: 11/22/17 0815 11/22/17 0815 Personally reviewed images: Yes Imaging Last Impressions Abdomen/Pelvis CT 11/22/17 0807 Signed Impressions: Service Date/Time: Wednesday, November 22, 2017 09:04 - CONCLUSION: Tiny, 1 mm stone distal right ureter without hydronephrosis or perinephric stranding. Tiny nonobstructing stone left kidney. Robin Humphrey MD FACR Assessment and Plan Assessment and Plan Urologic impression: #1 1 mm right distal ureteral calculus that should pass spontaneously #2 Tiny nonobstructing left renal calculus Recommendations: 1. Strain all urine 2. Flomax 0.4 mg by mouth daily until stone passes 3. May discharge home when pain managed with oral meds 4. Office follow-up in approximately 2 weeks [phone] Cosme Tucker MD Nov 23, 2017 12:58
[2017-11-23] MEDS ORDERED: TAMSULOSIN HCL 0.4 MG CAP PO SCH (13:00)
[2017-11-23] MEDS ORDERED: PHENAZOPYRIDINE HCL 200 MG TAB PO SCH (14:00)
== END 2017-11-23 15:03 | disposition home or self-care (01) ==
LOC: NEPE 07:51 → NEDA 11:44 → NEPGCP 15:15
PROVIDERS: ADMIT Internal Medicine; ATTEND Internal Medicine
DX: N20.2 Calculus of kidney with calculus of ureter (principal); G89.29 Other chronic pain; E86.0 Dehydration; I25.10 Atherosclerotic heart disease of native coronary artery without angina pectoris; I10 Essential (primary) hypertension; R73.03 Prediabetes; E78.00 Pure hypercholesterolemia, unspecified; K21.9 Gastro-esophageal reflux disease without esophagitis; F32.9 Major depressive disorder, single episode, unspecified; G47.30 Sleep apnea, unspecified; F20.9 Schizophrenia, unspecified; E66.9 Obesity, unspecified; F17.200 Nicotine dependence, unspecified, uncomplicated; Z98.1 Arthrodesis status
CPT/HCPCS: 74176; 80053; 80307; 81001; 85025; 85610; 85730; 96361; 96374; 96375; 96376; 99285; G0378; J1170; J1885; J2270; J2405; J7030